=== PATIENT | female | born 1970 | race Hispanic/Latino ===

== ENCOUNTER 2019-01-25 08:19 | Emergency (ER) | payer BC ==
[2019-01-25] MEDS ORDERED: Aspirin Chewable 81 MG TAB ONE (08:41)
[2019-01-25] MEDS ORDERED: Nitroglycerin 2% Ointment 1 INCH/1 GM Packet ONE (08:41)
[2019-01-25 09:10] LABS: #Basophils 0.1 thou/uL (0.0-0.2); #Eosinphils 0.2 thou/uL (0.0-0.7); #Lymphocytes 2.7 thou/uL (1.20-3.40); #Monocytes 0.4 thou/uL (0.11-0.59); #Neutrophils 3.5 thou/uL (1.40-6.50); %Basophils 1.8 % (0.0-1.0); %Eosinophils 2.6 % (0.0-10.0); %Lymphocytes 38.7 % (21.0-51.0); %Monocytes 6.1 % (0.0-10.0); %Neutrophils 50.8 % (42.0-75.0); Hemoglobin 14.9 g/dL (12.0-16.0); Mean Corpuscular HGB CONC 33.1 g/dL (32.0-36.0); Mean Corpuscular Hemoglobin 28.9 pg (27.0-31.0); Mean Corpuscular Volume 87.4 fL (78.0-98.0); Mean Platelet Volume 8.2 fL (7.4-10.4); Platelet Count 269 thou/uL (130-400); RBC Distribution Width 13.6 % (11.5-14.5); Red Blood Cell (RBC) Count 5.14 mill/uL (4.20-5.40)
[2019-01-25 09:16] LABS: ALT (SGPT) 67 U/L (8-55); AST (SGOT) 73 U/L (5-34); Albumin 3.7 g/dL (3.5-5.0); Alkaline Phosphatase 99 U/L (40-150); Anion Gap 15 mmol/L (10-20); BUN (Urea Nitrogen) 10 mg/dL (7.0-18.7); Bilirubin, Total 0.4 mg/dL (0.2-1.2); CK (CPK) 50 U/L (29-168); Calc. Creatinine Clearance 0 mL/min (70-130); Calcium 9.8 mg/dL (7.8-10.44); Carbon Dioxide 22 mmol/L (22-29); Chloride 104 mmol/L (98-107); Estimated GFR-MDRD 84; Globulin 4.2 g/dL (2.4-3.5); Glucose 152 mg/dL (70-105); Lipase 23 U/L (8-78); Potassium 3.8 mmol/L (3.5-5.1); Protein, Total 7.9 g/dL (6.0-8.3); Sodium 137 mmol/L (136-145)
[2019-01-25] MEDS ORDERED: Ketorolac Tromethamine 30 MG/ML VIAL ONE (09:33)
--- NOTE | 2019-01-25 09:35 | RAD ---
PORTABLE CHEST 1 VIEW: DATE: 01/25/2019. TIME: 9:05 a.m. HISTORY: Chest pain. FINDINGS/IMPRESSION: The heart size is borderline. There is elevation of the right hemidiaphragm. The lungs are well exp anded without focal areas of consolidation, pneumothoraces, or pleural effusions. POS: GABRIELAH
[2019-01-25] MEDS ORDERED: Morphine 4 MG/ML VIAL ONE (10:16)
[2019-01-25] MEDS ORDERED: Iopamidol 370 76% 100 ML VIAL ONE (10:25)
--- NOTE | 2019-01-25 10:47 | CT ---
CT PULMONARY ANGIOGRAM WITH IV CONTRAST AND 3D POSTPROCESSING: HISTORY: A 48-year-old female with chest pain, elevated D-dimer. FINDINGS: There is good contrast opacification of the pulmonary arterial vasculature without filling defects to suggest pulmonary embolism. Thoracic aorta is well opacified without aneurysm or dissection. No pl eural or pericardial effusions are seen. No pneumothoraces, focal areas of consolidation, lung nodul es, or masses are identified. There are degenerative changes in the spine. Upper abdominal tomogram s demonstrate changes of cholecystectomy. IMPRESSION: No CT evidence of pulmonary embolism. POS: ALBINO
== END 2019-01-25 12:59 | disposition home or self-care (01) ==
LOC: SCSER 08:19
DX: R07.89 Other chest pain (principal); F41.9 Anxiety disorder, unspecified
CPT/HCPCS: 36415; 71045; 71275; 80053; 82550; 83690; 84484; 85025; 85379; 93005; 96374; 96375; J1885; J2270; Q9967

== ENCOUNTER 2019-02-23 22:25 | Emergency (ER) | payer BC ==
--- NOTE | 2019-02-24 07:34 | ULT ---
PRELIMINARY REPORT/[facility]/EMERGENCY AFTER HOURS PROCEDURE: EXAM: US Duplex Left Lower Extremity Veins, Limited EXAM DATE/TIME: 02/24/2019 12:02 AM CLINICAL HISTORY: 48 years old, female; Leg, upper and toes; Left; Patient HX: Lt groin and lt big toe pain/edema TECHNIQUE: Imaging protocol: Real-time Duplex ultrasound of the Left Lower Extremity with 2-D harris scale, color Doppler flow and spectral waveform analysis. Limited exam focused on the left lower extremity veins. COMPARISON: No relevant prior studies available. FINDINGS: Left deep veins: Unremarkable. The common femoral, femoral, proximal profunda femoral and popliteal veins are patent without thrombus. Normal Doppler waveforms. Normal compressibility and/or augmentation response. Left superficial veins: Unremarkable. Saphenofemoral junction is patent without thrombus. Soft tissues: Unremarkable. Lymph nodes: Incidental left inguinal lymph node does not exceed 1 cm in short axis. IMPRESSION: No DVT. Thank you for allowing us to participate in the care of your patient. Dictated and Authenticated by: Dg Gusman MD 02/24/2019 1:32 AM Central Time ([place] & [place]) FINAL REPORT LEFT LOWER EXTREMITY VENOUS DOPPLER ULTRASOUND: Date: 02/24/19 COMPARISON: None HISTORY: Left groin pain, concern for DVT, edema. FINDINGS: I agree with the preliminary report. Left lower extremity venous structures assessed with c olor flow and spectral analysis. Left common femoral vein, greater saphenous vein, profunda femoral vein, femoral vein, popliteal vein, and posterior tibial vein are patent with no evidence for DVT. IMPRESSION: No evidence for DVT within the left lower extremity. Code QA Transcribed Date/Time: 02/24/2019 8:09 AM
== END 2019-02-24 02:10 | disposition home or self-care (01) ==
LOC: SCSER 22:25
DX: R10.32 Left lower quadrant pain (principal); R60.0 Localized edema; M79.672 Pain in left foot; I10 Essential (primary) hypertension; F41.9 Anxiety disorder, unspecified; Z79.899 Other long term (current) drug therapy

== ENCOUNTER 2019-02-24 16:16 | Inpatient (IN) | payer BC ==
[2019-02-24] MEDS ORDERED: Ondansetron PF 4 MG/2 ML Vial IVP PRN (18:47)
[2019-02-24] MEDS ORDERED: Acetaminophen 325 MG TAB PO PRN (18:47)
[2019-02-24] MEDS ORDERED: Ondansetron ODT 4 MG TAB SL PRN (18:47)
[2019-02-24] MEDS ORDERED: Sodium Chloride 0.9% 1,000 ML IV SCH (18:47)
[2019-02-24 19:49] VITALS: BMI 49.4
[2019-02-24 20:55] LABS: Lactic Acid 2.1 mmol/L (0.5-2.2)
[2019-02-25] MEDS ORDERED: hydrALAZINE 20 MG/ML VIAL SLOW IVP PRN (01:45)
[2019-02-25] MEDS ORDERED: Ondansetron ODT 4 MG TAB PO PRN (01:45)
[2019-02-25] MEDS ORDERED: Acetaminophen 500 MG TAB PO PRN (01:45)
[2019-02-25] MEDS ORDERED: Ondansetron PF 4 MG/2 ML Vial IVP PRN (01:45)
[2019-02-25] MEDS: cefTRIAXone\\ROCEPHIN 2 GM in Sodium Chloride 0.9% 100 ML IVPB SCH (02:02)
--- NOTE | 2019-02-25 05:03 | HP ---
PRIMARY CARE PROVIDER: Zachery Rivera MD CHIEF COMPLAINT: Left foot pain. HISTORY OF PRESENT ILLNESS: This is a 48-year-old female who presents to [facility] Emergency Department with complaints of left foot and groin pain. The patient states the pain is sharp, worse with walking, and lying still or sitting, making it better. The patient denied any specific direct injury to the left foot, but states a long-standing history of chronic lymphedema of the left lower extremity after her 12 to 13 years prior to this evaluation. The patient noted increased redness, swelling on the top portion of her foot with some migration of the redness up the duarte. The patient states she has had similar redness in the foot in the past, taking oral antibiotics with resolution. The patient became concerned when the swelling and tenderness increased in through her left groin region. The patient states her symptoms began approximately 4 days prior to this evaluation and increased in severity in the last 24 hours. The patient states she was recently treated with antiviral therapy for shingles which have now resolved. In the emergency room, the patient underwent general evaluation including vascular ultrasound of the left lower extremity ruling out the deep venous thrombosis. The patient was treated with IV vancomycin and Rocephin and given intravenous normal saline x2 L after meeting SIRS criteria. PAST MEDICAL HISTORY: 1. Chronic lymphedema of the left lower extremity x13 years. 2. Hypertension. 3. Anxiety disorder. PAST SURGICAL HISTORY: Status post section x3. CURRENT MEDICATIONS: 1. Losartan 50 mg p.o. daily. 2. Singulair 10 mg p.o. daily. 3. Duloxetine 30 mg p.o. daily. ALLERGIES: NO KNOWN DRUG ALLERGIES. FAMILY HISTORY: No inheritable disease per patient report. SOCIAL HISTORY: The patient is , accompanied by her in the hospital. Resides in [place], [place]. No current alcohol, tobacco, or illicit drug use. REVIEW OF SYSTEMS: CONSTITUTIONAL: Negative for weight loss or gain, ability to conduct usual activities. SKIN: Negative for rash, itching. EYES: Negative for double vision, pain. ENT/MOUTH: Negative for nose bleeding, neck stiffness, pain, tenderness. CARDIOVASCULAR: Negative for palpitations, dyspnea on exertion, orthopnea. RESPIRATORY: Negative for shortness of breath, wheezing, cough, hemoptysis, fever or night sweats. GASTROINTESTINAL: Negative for poor appetite, abdominal pain, heartburn, nausea, vomiting, constipation, or diarrhea. GENITOURINARY: Negative for urgency, frequency, dysuria, nocturia. MUSCULOSKELETAL: Negative for pain, swelling. NEUROLOGIC/PSYCHIATRIC: Negative for anxiety, depression. ALLERGY/IMMUNOLOGIC: Negative for skin rash, bleeding tendency. Otherwise, negative except as stated per HPI. PHYSICAL EXAMINATION: VITAL SIGNS: On admission; blood pressure 134/82, pulse 116, respiratory rate 20, temperature 98.2 degrees Fahrenheit, O2 saturation 98% on room air. GENERAL APPEARANCE: This is a 48-year-old female, alert and oriented x3, pleasant, conversant, in no acute distress. HEENT: Pupils are equal, round, and reactive to light and accommodation. Extraocular muscles are intact. No scleral icterus. No conjunctival injection. Nares patent. OP is clear. Teeth in fair repair. NECK: Supple. No cervical adenopathy. No thyromegaly. No carotid bruits. No JVD appreciated. Cervical spine with full active and passive range of motion. No meningeal signs noted. CHEST: Lungs are clear to auscultation bilaterally. CARDIOVASCULAR: S1 and S2 without noted murmur, rub, or gallop. ABDOMEN: Obese, soft, nontender, and nondistended. Landmarks difficult to palpate due to the patient's body habitus. EXTREMITIES: Chronic left lower extremity edema noted. Erythema noted to the dorsum of the left foot extending to the ankle region. No open ulceration noted on the plantar aspect of the foot or between the toes. Mild lymphadenopathy in the medial aspect of the thigh. Nonpitting edema noted throughout the left lower extremity. Pulses are palpable distally at the dorsalis pedis, posterior tibial, and popliteal arteries bilaterally. Capillary refill less than 2 seconds. NEUROLOGIC: Cranial nerves II through XII are grossly intact. No focal or lateralizing signs appreciated. PERTINENT LAB AND X-RAY FINDINGS: Sodium 137, potassium 3.7, chloride 98, CO2 of 27, BUN 8, creatinine 0.85, glucose 205, estimated GFR 72. Lactic acid level ranged between 2.1 to 2.3. AST 41, ALT 50, alkaline phosphatase 97. CBC showed white blood cell count of 16.4, hemoglobin 14.4, hematocrit 44.3, platelet count 236 with 87% neutrophils. Left lower extremity venous Doppler study dated 02/24/2019, showed no evidence for DVT. ASSESSMENT AND PLAN: 1. Cellulitis of the left lower extremity. The patient will be admitted to the medical floor. We will continue vancomycin 1.25 g IV q.12 hours with additional Rocephin 2 g IV q.24 hours. Deep venous thrombosis ruled out with negative Doppler study. Continue serial monitoring. 2. Systemic inflammatory response syndrome, secondary to #1. See #1 above for management. 3. Chronic lymphedema of the left lower extremity. Recommend compression stocking after discharge. 4. Hypertension. Resume losartan 50 mg p.o. daily. Serial blood pressure monitoring. 5. Chronic kidney disease stage 2, stable currently. Avoid nephrotoxic agents and limit contrast exposure. Repeat creatinine in the a.m. 6. Prophylaxis. Sequential compression devices held due to lower extremity edema. Lovenox 40 mg subcutaneously q.24 hours. Pepcid 20 mg p.o. b.i.d. CODE STATUS: Full. Surrogate medical decision maker is the patient's spouse. Job ID: [id number]
[2019-02-25] MEDS: Ketorolac Tromethamine 30 MG/ML VIAL IVP SCH ×4 (05:11→19:38)
[2019-02-25] MEDS: Vancomycin HCl 1.25 GM in Sodium Chloride 0.9% 250 ML 250 ML IVPB SCH ×2 (05:12→16:24)
[2019-02-25 06:14] LABS: Band 9 % (5-11); Hemoglobin 13.1 g/dL (12.0-16.0); Lymphocytes 29 % (21-51); MDiff Complete? YES; Mean Corpuscular Hemoglobin 28.3 pg (27.0-31.0); Mean Corpuscular Volume 88.4 fL (78.0-98.0); Mean Platelet Volume 8.4 fL (7.4-10.4); Metamyelocyte 1 % (0-0); Monocytes 7 % (0-10); Neutrophil 53 % (42-75); Platelet Count 199 thou/uL (130-400); Platelet Morphology Comment Appears Adequate; RBC Distribution Width 13.4 % (11.5-14.5); Red Blood Cell (RBC) Count 4.63 mill/uL (4.20-5.40); White Blood Cell (WBC) Count 9.5 thou/uL (4.8-10.8)
[2019-02-25 06:20] LABS: Anion Gap 12 mmol/L (10-20); BUN (Urea Nitrogen) 5 mg/dL (7.0-18.7); Calc. Creatinine Clearance 213 mL/min (70-130); Calcium 8.8 mg/dL (7.8-10.44); Carbon Dioxide 27 mmol/L (22-29); Chloride 101 mmol/L (98-107); Estimated GFR-MDRD Greater than 90; Glucose 140 mg/dL (70-105); Potassium 3.8 mmol/L (3.5-5.1); Sodium 136 mmol/L (136-145)
[2019-02-25] MEDS: Enoxaparin Sodium 40 MG/0.4 ML SYRINGE SC SCH (08:27)
[2019-02-25] MEDS: Losartan 25 MG TAB PO SCH (08:27)
[2019-02-25] MEDS: DULoxetine 30 MG CAP PO SCH (08:27)
[2019-02-25] MEDS: Montelukast Sodium 10 mg Tablet PO SCH (08:27)
[2019-02-25] MEDS: Famotidine 20 MG TAB PO SCH ×2 (08:28→19:39)
--- NOTE | 2019-02-25 13:13 | PDOC.PN ---
- Subjective Encounter Start Date: 02/25/19 Encounter Start Time: 12:00 Subjective: left foot pain is better, swelling has come down -: is able to amb in room -: at bedside - Objective Resuscitation Status - Order Detail: 02/25/19 01:38 Resuscitation Status Routine Resuscitation Status: FULL: Full Resuscitation MAR Reviewed: Yes Vital Signs & Weight: Vital Signs (12 hours) Temp Pulse Resp BP BP Pulse Ox 02/25/19 08:00 98.1 F 76 16 129/78 98 02/25/19 04:00 98.0 F 80 20 167/85 H 94 L Weight Weight 288 lb 4.8 oz I&O: 02/24/19 02/25/19 02/26/19 06:59 06:59 06:59 Intake Total 1751 240 Balance 1751 240 Result Diagrams: 02/25/19 05:10 02/25/19 05:10 Phys Exam - Physical Examination HEENT: PERRLA, moist MMs Neck: no JVD, supple Respiratory: no wheezing, no rales Cardiovascular: RRR, no significant murmur Gastrointestinal: soft, non-tender, positive bowel sounds Musculoskeletal: pulses present, edema present mild erythema and chronic edema of left LE Neurological: non-focal, moves all 4 limbs Psychiatric: normal affect, A&O x 3 Dx/Plan (1) Left leg cellulitis Code(s): L03.116 - CELLULITIS OF LEFT LOWER LIMB Status: Acute (2) Morbid obesity Code(s): E66.01 - MORBID (SEVERE) OBESITY DUE TO EXCESS CALORIES Status: Chronic (3) Chronic acquired lymphedema Code(s): I89.0 - LYMPHEDEMA, NOT ELSEWHERE CLASSIFIED Status: Chronic Comment: left LE (4) HTN (hypertension) Code(s): I10 - ESSENTIAL (PRIMARY) HYPERTENSION Status: Chronic Qualifiers: Hypertension type: essential hypertension Qualified Code(s): I10 - Essential (primary) hypertension (5) Anxiety disorder Code(s): F41.9 - ANXIETY DISORDER, UNSPECIFIED Status: Chronic Qualifiers: Anxiety disorder type: unspecified anxiety disorder Qualified Code(s): F41.9 - Anxiety disorder, unspecified - Plan is on vanc and ceftriaxone -: continue cozaar, singulair, duloxetine -: had temp of 99 this am -: to amb as tolerated -: dc plan in am, d/w patient and * . Review of Systems - Medications/Allergies Allergies/Adverse Reactions: Allergies Allergy/AdvReac Type Severity Reaction Status Date / Time No Known Allergies Allergy Verified 02/24/19 20:55 Medications: Current Medications Acetaminophen (Tylenol) 1,000 mg PO Q6H PRN PRN Reason: Mild Pain (1-3) Duloxetine HCl (Cymbalta) 30 mg PO DAILY [facility] Last Admin: 02/25/19 08:27 Dose: 30 mg Enoxaparin Sodium (Lovenox) 40 mg SC 0900 [facility] Last Admin: 02/25/19 08:27 Dose: 40 mg Famotidine (Pepcid) 20 mg PO BID [facility] Last Admin: 02/25/19 08:28 Dose: 20 mg Hydralazine HCl (Apresoline) 10 mg SLOW IVP Q4H PRN PRN Reason: SBP > 180 and HR < 70 Ceftriaxone Sodium 2 gm/ (Sodium Chloride) 100 mls @ 200 mls/hr IVPB Q24HR [facility] Last Admin: 02/25/19 02:02 Dose: 100 mls Vancomycin HCl 1.25 gm/ Sodium (Chloride) 250 mls @ 166.67 mls/hr IVPB 0500, 1700 [facility] Last Admin: 02/25/19 05:12 Dose: 250 mls Ketorolac Tromethamine (Toradol) 30 mg IVP Q6HR [facility] Stop: 03/02/19 06:01 Last Admin: 02/25/19 11:44 Dose: 30 mg Losartan Potassium (Cozaar) 50 mg PO DAILY [facility] Last Admin: 02/25/19 08:27 Dose: 50 mg Montelukast Sodium (Singulair) 10 mg PO DAILY [facility] Last Admin: 02/25/19 08:27 Dose: 10 mg Ondansetron HCl (Zofran Odt) 4 mg PO Q6H PRN PRN Reason: Nausea/Vomiting Ondansetron HCl (Zofran) 4 mg IVP Q6H PRN PRN Reason: Nausea/Vomiting
[2019-02-26] MEDS: cefTRIAXone\\ROCEPHIN 2 GM in Sodium Chloride 0.9% 100 ML IVPB SCH (01:08)
[2019-02-26 04:46] LABS: Vancomycin, Trough 5.7 ug/mL
[2019-02-26] MEDS: Vancomycin HCl 1.25 GM in Sodium Chloride 0.9% 250 ML 250 ML IVPB SCH (05:45)
[2019-02-26] MEDS: Vancomycin HCl 1.5 GM in Sodium Chloride 0.9% 250 ML 300 ML IVPB SCH ×2 (05:46→16:59)
[2019-02-26] MEDS: Ketorolac Tromethamine 30 MG/ML VIAL IVP SCH ×3 (05:50→17:00)
[2019-02-26] MEDS: Enoxaparin Sodium 40 MG/0.4 ML SYRINGE SC SCH (09:13)
[2019-02-26] MEDS: Famotidine 20 MG TAB PO SCH ×2 (09:13→20:52)
[2019-02-26] MEDS: DULoxetine 30 MG CAP PO SCH (09:13)
[2019-02-26] MEDS: Losartan 25 MG TAB PO SCH (09:14)
[2019-02-26] MEDS: Montelukast Sodium 10 mg Tablet PO SCH (09:14)
[2019-02-26 10:25] LABS: Hemoglobin A1c 6.5 % (4.0-6.0)
[2019-02-26] MEDS ORDERED: Hydrochlorothiazide 25 MG TAB PO SCH (10:30)
[2019-02-26] MEDS ORDERED: Dextrose 50% Abboject 50 ML SYRINGE SLOW IVP PRN (13:23)
[2019-02-26] MEDS ORDERED: Dextrose 5% in Water 1,000 ML IV PRN (13:23)
--- NOTE | 2019-02-26 13:23 | PDOC.PN ---
- Subjective Encounter Start Date: 02/26/19 Encounter Start Time: 12:00 Subjective: still has some pain in her left foot -: has not amb much - Objective Resuscitation Status - Order Detail: 02/25/19 01:38 Resuscitation Status Routine Resuscitation Status: FULL: Full Resuscitation MAR Reviewed: Yes Vital Signs & Weight: Vital Signs (12 hours) Temp Pulse Resp BP Pulse Ox 02/26/19 08:00 97 02/26/19 07:38 98.0 F 80 18 149/77 H 97 Weight Weight 288 lb 4.8 oz I&O: 02/25/19 02/26/19 02/27/19 06:59 06:59 06:59 Intake Total 1751 1240 Balance 1751 1240 Result Diagrams: 02/25/19 05:10 02/25/19 05:10 Phys Exam - Physical Examination HEENT: PERRLA, moist MMs Neck: no JVD, supple Respiratory: no wheezing, no rales Cardiovascular: RRR, no significant murmur Gastrointestinal: soft, non-tender, positive bowel sounds Musculoskeletal: pulses present left foot edema chronic with mild worsening, mild erythema+ Neurological: non-focal, moves all 4 limbs Psychiatric: normal affect, A&O x 3 Dx/Plan (1) Left leg cellulitis Code(s): L03.116 - CELLULITIS OF LEFT LOWER LIMB Status: Acute (2) Morbid obesity Code(s): E66.01 - MORBID (SEVERE) OBESITY DUE TO EXCESS CALORIES Status: Chronic (3) Chronic acquired lymphedema Code(s): I89.0 - LYMPHEDEMA, NOT ELSEWHERE CLASSIFIED Status: Chronic Comment: left LE (4) HTN (hypertension) Code(s): I10 - ESSENTIAL (PRIMARY) HYPERTENSION Status: Chronic Qualifiers: Hypertension type: essential hypertension Qualified Code(s): I10 - Essential (primary) hypertension (5) Anxiety disorder Code(s): F41.9 - ANXIETY DISORDER, UNSPECIFIED Status: Chronic Qualifiers: Anxiety disorder type: unspecified anxiety disorder Qualified Code(s): F41.9 - Anxiety disorder, unspecified - Plan hemostable -: is on ceftriaxone and vanc, may switch to either keflex or augmentin in am -: dc plan in am -: motrin bid -: Hb A1C is 6.5, 1 set of serum glucose 140, check in am * . If her second set of fasting sugar is >120 in am, start metformin low dose prior to discharge Review of Systems - Medications/Allergies Allergies/Adverse Reactions: Allergies Allergy/AdvReac Type Severity Reaction Status Date / Time No Known Allergies Allergy Verified 02/24/19 20:55 Medications: Current Medications Acetaminophen (Tylenol) 1,000 mg PO Q6H PRN PRN Reason: Mild Pain (1-3) Duloxetine HCl (Cymbalta) 30 mg PO DAILY [facility] Last Admin: 02/26/19 09:13 Dose: 30 mg Enoxaparin Sodium (Lovenox) 40 mg SC 0900 [facility] Last Admin: 02/26/19 09:13 Dose: 40 mg Famotidine (Pepcid) 20 mg PO BID [facility] Last Admin: 02/26/19 09:13 Dose: 20 mg Hydralazine HCl (Apresoline) 10 mg SLOW IVP Q4H PRN PRN Reason: SBP > 180 and HR < 70 Hydrochlorothiazide (Hydrochlorothiazide) 25 mg PO DAILY [facility] Ceftriaxone Sodium 2 gm/ (Sodium Chloride) 100 mls @ 200 mls/hr IVPB Q24HR [facility] Last Admin: 02/26/19 01:08 Dose: 100 mls Vancomycin HCl 1.5 gm/ Sodium (Chloride) 300 mls @ 200 mls/hr IVPB 0600,1800 [facility] Last Admin: 02/26/19 05:46 Dose: 300 mls Ibuprofen (Motrin) 400 mg PO BID [facility] Ketorolac Tromethamine (Toradol) 30 mg IVP Q6HR [facility] Stop: 03/02/19 06:01 Last Admin: 02/26/19 12:54 Dose: Not Given Losartan Potassium (Cozaar) 50 mg PO DAILY [facility] Last Admin: 02/26/19 09:14 Dose: 50 mg Ondansetron HCl (Zofran Odt) 4 mg PO Q6H PRN PRN Reason: Nausea/Vomiting Ondansetron HCl (Zofran) 4 mg IVP Q6H PRN PRN Reason: Nausea/Vomiting Sodium Chloride (Flush - Normal Saline) 10 ml IVF Q12HR [facility] Sodium Chloride (Flush - Normal Saline) 10 ml IVF PRN PRN PRN Reason: Saline Flush
--- NOTE | 2019-02-26 15:19 | PQF ---
CLINICAL DOCUMENTATION IMPROVEMENT CLARIFICATION FORM: ICD-10 Updated PLEASE DO AN ADDENDUM TO THE PROGRESS NOTE WITH ANY DOCUMENTATION UPDATES OR ADDITIONS AND CARRY THROUGH TO DC SUMMARY. THANK YOU. DATE: 02/26/19 ATTN: DR. ESPINAL Please exercise your independent, professional judgment in responding to the clarification form. Clinical indicators are provided on the bottom of this form for your review Please check appropriate box(s) to clarify if the following diagnosis has been ruled in or ruled out: "SEPSIS" [ ] Ruled in diagnosis [ ] Continue to treat [ ] Resolved [ x ] Ruled out diagnosis [ ] Cannot rule out diagnosis [ ] Other diagnosis [ ] Unable to determine In addition, please specify: Present on Admission (POA): [ x ] Yes [ ] No [ ] Unable to determine For continuity of documentation, please document condition throughout progress notes and discharge summary. Thank You. CLINICAL INDICATORS - SIGNS / SYMPTOMS / LABS ER NOTE: "FULL SEPSIS TREATMENT WAS ORDERED" DX: "SEPSIS" LACTIC ACID 2.3 GLUCOSE 140 PULSE 80'S-112 TEMP 99.9 RISKS: CELLULITIS LLE TREATMENT: IV FLUIDS (ER) IV VANCOMYCIN (ER-PRESENT) IV ROCEPHIN (02/25-PRESENT) BLOOD CULTURES [employer] Techn[employer] Winform Viewer (This form is maintained as a part of the permanent medical record) 2014 [employer]. All Rights Reserved [email or web address] Office: [phone] MTDD
[2019-02-26] MEDS: HumaLOG 300 UNITS/3 ML VIAL SC PRN (17:13)
[2019-02-26] MEDS: Ibuprofen 200 MG TAB PO SCH (20:52)
[2019-02-27] MEDS: cefTRIAXone\\ROCEPHIN 2 GM in Sodium Chloride 0.9% 100 ML IVPB SCH (01:55)
[2019-02-27] MEDS: Vancomycin HCl 1.5 GM in Sodium Chloride 0.9% 250 ML 300 ML IVPB SCH (05:00)
[2019-02-27 05:51] LABS: #Basophils 0.1 thou/uL (0.0-0.2); #Eosinphils 0.2 thou/uL (0.0-0.7); #Monocytes 0.7 thou/uL (0.11-0.59); #Neutrophils 2.9 thou/uL (1.40-6.50); %Basophils 1.2 % (0.0-1.0); %Eosinophils 3.5 % (0.0-10.0); %Lymphocytes 43.6 % (21.0-51.0); %Monocytes 9.7 % (0.0-10.0); %Neutrophils 41.9 % (42.0-75.0); Hemoglobin 12.3 g/dL (12.0-16.0); Mean Corpuscular HGB CONC 32.5 g/dL (32.0-36.0); Mean Corpuscular Hemoglobin 28.5 pg (27.0-31.0); Mean Corpuscular Volume 87.8 fL (78.0-98.0); Platelet Count 221 thou/uL (130-400); Red Blood Cell (RBC) Count 4.32 mill/uL (4.20-5.40); White Blood Cell (WBC) Count 6.8 thou/uL (4.8-10.8)
[2019-02-27 06:15] LABS: Anion Gap 11 mmol/L (10-20); BUN (Urea Nitrogen) 8 mg/dL (7.0-18.7); Calc. Creatinine Clearance 207 mL/min (70-130); Calcium 8.6 mg/dL (7.8-10.44); Carbon Dioxide 27 mmol/L (22-29); Chloride 103 mmol/L (98-107); Estimated GFR-MDRD 90; Glucose 127 mg/dL (70-105); Potassium 3.7 mmol/L (3.5-5.1); Sodium 137 mmol/L (136-145)
[2019-02-27] MEDS: Famotidine 20 MG TAB PO SCH (08:44)
[2019-02-27] MEDS: Enoxaparin Sodium 40 MG/0.4 ML SYRINGE SC SCH (08:44)
[2019-02-27] MEDS: DULoxetine 30 MG CAP PO SCH (08:44)
[2019-02-27] MEDS: Losartan 25 MG TAB PO SCH (08:44)
[2019-02-27] MEDS: Ibuprofen 200 MG TAB PO SCH (08:45)
[2019-02-27] MEDS ORDERED: Hydrochlorothiazide 25 MG TAB PO SCH (09:00)
--- NOTE | 2019-02-27 11:52 | PDOC.PN ---
- Subjective Encounter Start Date: 02/27/19 Encounter Start Time: 11:51 Ms. Power was seen today in follow-up of ellulitis of the left lower extremity. She does not have any complaints today. - Objective Resuscitation Status - Order Detail: 02/25/19 01:38 Resuscitation Status Routine Resuscitation Status: FULL: Full Resuscitation MAR Reviewed: Yes Vital Signs & Weight: Vital Signs (12 hours) Temp Pulse Resp BP BP Pulse Ox 02/27/19 08:03 97.6 F 76 16 160/98 H 96 02/27/19 07:52 96 02/27/19 04:49 97.8 F 75 20 130/85 99 Weight Weight 288 lb 4.8 oz I&O: 02/26/19 02/27/19 02/28/19 06:59 06:59 06:59 Intake Total 1240 2380 Balance 1240 2380 Result Diagrams: 02/27/19 05:34 02/27/19 05:33 Additional Labs: Accuchecks 02/27/19 02/27/19 02/26/19 11:27 04:55 22:01 POC Glucose 230 H 134 H 173 H 02/26/19 17:11 POC Glucose 253 H Phys Exam - Physical Examination HEENT: PERRLA Respiratory: no wheezing, no rales, no rhonchi, clear to auscultation bilateral Cardiovascular: RRR, no significant murmur, no rub Gastrointestinal: soft, non-tender, no distention, positive bowel sounds Musculoskeletal: pulses present, edema present + mild erythema on the anterior lower leg good distal pulses Dx/Plan (1) Left leg cellulitis Code(s): L03.116 - CELLULITIS OF LEFT LOWER LIMB Status: Acute (2) Diabetes mellitus type 2 in obese Code(s): E11.69 - TYPE 2 DIABETES MELLITUS WITH OTHER SPECIFIED COMPLICATION; E66.9 - OBESITY, UNSPECIFIED Status: Acute (3) Chronic acquired lymphedema Code(s): I89.0 - LYMPHEDEMA, NOT ELSEWHERE CLASSIFIED Status: Chronic Comment: left LE (4) HTN (hypertension) Code(s): I10 - ESSENTIAL (PRIMARY) HYPERTENSION Status: Chronic Qualifiers: Hypertension type: essential hypertension Qualified Code(s): I10 - Essential (primary) hypertension (5) Morbid obesity Code(s): E66.01 - MORBID (SEVERE) OBESITY DUE TO EXCESS CALORIES Status: Chronic - Plan * Cellulitis of the left leg- clinically improved- will transition her to an oral antibiotic * DM- new onset- will start Meyformin and send her home with information on diabetes and close putpatient follow-up * Stable for discharge home.
[2019-02-27] MEDS: HumaLOG 300 UNITS/3 ML VIAL SC PRN (12:59)
[2019-02-27 13:53] VITALS: BP 146/88; TEMP 98.2
--- NOTE | 2019-02-28 02:40 | DIS ---
DATE OF ADMISSION: 02/24/2019 DATE OF DISCHARGE: 02/27/2019 PRIMARY CARE PHYSICIAN: Zachery Rivera MD DISCHARGE DISPOSITION: Home. PRIMARY DISCHARGE DIAGNOSES: 1. Cellulitis of the left lower extremity. 2. Diabetes mellitus type 2, newly diagnosed. 3. Morbid obesity. 4. Hypertension, poorly controlled. 5. Chronic lymphedema. 6. Anxiety. DISCHARGE MEDICATIONS: 1. Metformin 500 mg twice daily. 2. Keflex 500 mg twice a day for 7 days. 3. Continue losartan 50 mg daily. 4. Hydrochlorothiazide 25 mg daily. 5. Duloxetine 30 mg daily. 6. Nystatin cream twice a day between the toes. CODE STATUS: Full code. ALLERGIES: NO KNOWN DRUG ALLERGIES. HOSPITAL COURSE: Ms. Power is a pleasant 48-year-old female, who presented to the emergency room complaining of pain in the left foot. She was found to have a cellulitis in the left lower extremity. She was started on IV antibiotics. DVT was ruled out with venous Doppler. She improved over the next couple of days and was able to be transitioned to oral antibiotics. Also during her hospital stay, she was found to be diabetic. Her fasting blood glucose was above 126 and was started on metformin. She was also given information on diabetes mellitus and instructed to have close outpatient followup with her primary care physician. Job ID: [id number]
== END 2019-02-27 13:33 | disposition home or self-care (01) | DRG 603 ==
LOC: SCSER 16:16 → T4-B 18:18
PROVIDERS: ADMIT Internal Medicine; ATTEND Internal Medicine
DX: L03.116 Cellulitis of left lower limb (principal); Z68.42 Body mass index [BMI] 45.0-49.9, adult; F41.9 Anxiety disorder, unspecified; I89.0 Lymphedema, not elsewhere classified; N18.2 Chronic kidney disease, stage 2 (mild); I12.9 Hypertensive chronic kidney disease with stage 1 through stage 4 chronic kidney disease, or unspecified chronic kidney disease; E66.01 Morbid (severe) obesity due to excess calories; E11.9 Type 2 diabetes mellitus without complications
CPT/HCPCS: 36415; 36416; 80048; 80053; 80202; 83036; 83605; 85007; 85025; 85027; 87040; 93005; 96365; J0696; J1650; J1885; J3370; J3490; J7050

== ENCOUNTER 2020-05-13 16:30 | Outpatient (CLI) | payer BC | END 2020-05-13 16:31 | disposition home or self-care (01) | LOC: SLEEPLAB 16:30 | PROVIDERS: ATTEND Family Medicine | DX: G47.33 Obstructive sleep apnea (adult) (pediatric) (principal); R06.83 Snoring; F41.8 Other specified anxiety disorders; E11.9 Type 2 diabetes mellitus without complications; I10 Essential (primary) hypertension; G31.84 Mild cognitive impairment of uncertain or unknown etiology; G47.00 Insomnia, unspecified; E66.9 Obesity, unspecified; Z68.42 Body mass index [BMI] 45.0-49.9, adult | CPT/HCPCS: 95806 ==

== ENCOUNTER 2020-08-21 11:35 | Emergency (ER) | payer BC ==
[2020-08-21] MEDS ORDERED: Ondansetron PF 4 MG/2 ML Vial ONE (12:08)
[2020-08-21] MEDS ORDERED: Ketorolac Tromethamine 30 MG/ML VIAL ONE (12:08)
[2020-08-21] MEDS ORDERED: Morphine 4 MG/ML VIAL ONE ×2 (12:08→15:05)
[2020-08-21 12:13] LABS: Bilirubin Negative (Negative); Blood, Urine Large (Negative); Glucose, Urine (Dipstick) 250 mg/dL (Negative); Ketone, Urine Negative (Negative); Leukocyte Negative (Negative); Nitrite Negative (Negative); Protein, Urine (Dipstick) 30 mg/dL (Neg-Trace); Urobilinogen 0.2 mg/dL (Less than 2)
[2020-08-21 12:15] LABS: Clarity Cloudy (Clear)
[2020-08-21 12:19] LABS: RBC/HPF Greater than 50 HPF (0-3); Squamous Epithelial 0-3 HPF (0-3); WBC/HPF 0-3 HPF (0-3)
[2020-08-21 12:20] LABS: Bacteria/HPF None Seen HPF (None Seen)
[2020-08-21 12:32] LABS: #Eosinphils 0.1 thou/uL (0.0-0.7); #Lymphocytes 1.6 thou/uL (1.20-3.40); #Monocytes 0.7 thou/uL (0.11-0.59); %Basophils 0.2 % (0.0-1.0); %Eosinophils 0.6 % (0.0-10.0); %Lymphocytes 11.9 % (21.0-51.0); %Monocytes 5.4 % (0.0-10.0); Mean Corpuscular HGB CONC 33.9 g/dL (32.0-36.0); Mean Corpuscular Hemoglobin 29.4 pg (27.0-31.0); Mean Corpuscular Volume 86.7 fL (78.0-98.0); Mean Platelet Volume 8.4 fL (7.4-10.4); Platelet Count 252 thou/uL (130-400); Red Blood Cell (RBC) Count 5.09 mill/uL (4.20-5.40); White Blood Cell (WBC) Count 13.4 thou/uL (4.8-10.8)
[2020-08-21 13:10] LABS: ALT (SGPT) 53 U/L (8-55); AST (SGOT) 58 U/L (5-34); Albumin 3.9 g/dL (3.5-5.0); Alkaline Phosphatase 110 U/L (40-110); Anion Gap 15 mmol/L (10-20); BUN (Urea Nitrogen) 12 mg/dL (7.0-18.7); Bilirubin, Total 0.5 mg/dL (0.2-1.2); Calc. Creatinine Clearance 0 mL/min (70-130); Carbon Dioxide 23 mmol/L (22-29); Chloride 100 mmol/L (98-107); Globulin 3.8 g/dL (2.4-3.5); Glucose 248 mg/dL (70-105); Lipase 30 U/L (8-78); Protein, Total 7.7 g/dL (6.0-8.3); Sodium 134 mmol/L (136-145)
--- NOTE | 2020-08-21 13:20 | ULT ---
PELVIC ULTRASOUND: Date: 08/21/2020 INDICATION: Pelvic pain. FINDINGS: Transabdominal and endovaginal ultrasound performed. Exam is limited due to body habitus and position of the uterus according to the technologist. The lummi betsy is poorly evaluated. A nabothian cyst is seen at the cervix. Neither ovary is identified. No mass is identified. IMPRESSION: Nondiagnostic study. POS: AGW
[2020-08-21 13:45] LABS: Pregnancy Test - Urine (BHCG) Negative (Negative); Pregu Control Background? CLEAR/WHITE (CLR/WHITE); Pregu Control Bar Appear? YES (CONTROL BAR)
--- NOTE | 2020-08-21 14:43 | CT ---
CT ABDOMEN AND PELVIS WITHOUT IV CONTRAST: Indications: Right flank pain, abdominal pain. Comparison: 07-11-2018 FINDINGS: Lung bases clear. Liver, spleen, and pancreas unremarkable. Post cholecystectomy change. The right kidney is enlarged consistent with edematous change. There is right perinephric stranding a nd mild right hydronephrosis. There is a small calculus in the proximal right ureter measuring 3-4 mm. Left kidney and left collecting structures unremarkable. Bladder unremarkable. Bowel loops unremarkable. Pelvis shows unremarkable uterus and adnexa. Aorta normal caliber. Osseous structures unremarkable. IMPRESSION: 3-4 mm obstructing calculus in the proximal right ureter with right hydronephrosis and right perineph minoo stranding. POS: AGW
== END 2020-08-21 15:52 | disposition home or self-care (01) ==
LOC: ERS 11:35
DX: N13.2 Hydronephrosis with renal and ureteral calculous obstruction (principal); Z79.899 Other long term (current) drug therapy; I10 Essential (primary) hypertension
CPT/HCPCS: 74176; 76856; 80053; 81003; 81015; 81025; 83690; 85025; 96374; 96375; 96376; J1885; J2270; J2405

== ENCOUNTER 2020-12-21 14:10 | Outpatient (CLI) | payer BC | END 2020-12-21 14:11 | disposition home or self-care (01) | LOC: BICULT 14:10 | PROVIDERS: ATTEND Family Medicine | DX: M79.605 Pain in left leg (principal) ==

== ENCOUNTER 2022-03-09 10:18 | Outpatient (CLI) | payer BC | END 2022-03-09 10:19 | disposition home or self-care (01) | LOC: TBSIIMAG 10:18 | PROVIDERS: ATTEND Family Medicine | DX: M54.2 Cervicalgia (principal); M47.812 Spondylosis without myelopathy or radiculopathy, cervical region | CPT/HCPCS: 72141 ==